=== PATIENT | male | born 1950 | race Caucasian/White ===

== ENCOUNTER 2021-07-15 07:50 | Emergency (ER) | payer OTHER ==
--- OUTSIDE RECORDS SUMMARY | 2021-07-15 07:53 | XMS REPORT | Continuity of Care Document ---
:1950 Author Organization [facility] t Address [address] [place] [address] Dr. Perera [address] [place] [id number] Care Team Providers Name Role Phone LAYTON Attending Clinician Unavailable Problems This patient has no known problems. Allergies, Adverse Reactions, Alerts This patient has no known allergies or adverse reactions. Medications This patient has no known medications. Procedures This patient has no known procedures. Encounters Start End Encounter Admission Attending Care Care Encounter Source Date/Time Date/Time Type Type Clinicians Facility Department ID 2020-03-08 2020-03-08 Outpatient [facility] [id number] [address] 00:00:00 00:00:00 MAKSIM [address] 2020-03-08 2020-03-08 Outpatient [facility] [id number] [address] 00:00:00 00:00:00 MAKSIM [address] Results This patient has no known results.
--- NOTE | 2021-07-15 08:00 | EDPHYS ---
Physician Documentation [facility] Name: Arnulfo Ponce Age: 71 yrs Sex: Male : 1950 Arrival Date: 07/15/2021 Time: 07:52 Bed Waiting Private MD: ED Physician Jim Santos HPI: 07/15 08:02 This 71 yrs old Male presents to ER via Ambulatory with complaints of Head Injury kb Without LOC-Adult. 08:02 The patient or guardian reports a laceration, 1 cm(s), clean. The complaints affect the kb left side of the back of head. Context of injury: The problem was sustained at home, resulted from standing up, and hitting a cabinet. Onset: The symptoms/episode began/occurred just prior to arrival. Associated signs and symptoms: Loss of consciousness: This patient did not experience any loss of consciousness. Severity of symptoms: At their worst the symptoms were mild, in the emergency department the symptoms are unchanged. The patient has not experienced similar symptoms in the past. The patient has not recently seen a physician. Pt reports he opened a cabinet, bent down and when he stood back up hit his head on the corner of the cabinet causing laceration. Denies headache, loc, dizziness. . Historical: - Allergies: 07:57 No Known Allergies; vg1 - Immunization history:: Client reports receiving the 2nd dose of the Covid vaccine. - Social history:: Smoking status: Patient denies any tobacco usage or history of. ROS: 08:00 Constitutional: Negative for fever, chills, and weight loss. kb 08:00 Skin: Positive for laceration(s), of the left side of the back of head. 08:00 All other systems are negative. Exam: 08:00 Constitutional: This is a well developed, well nourished patient who is awake, alert, kb and in no acute distress. ENT: Moist Mucous membranes Respiratory: Respirations even and unlabored. No increased work of breathing. Talking in full sentences MS/ Extremity: Pulses equal, no cyanosis. Neurovascular intact. Full, normal range of motion. Neuro: Awake and alert, GCS 15, oriented to person, place, time, and situation. Moves all extremities. Normal gait. Psych: Awake, alert, with orientation to person, place and time. Behavior, mood, and affect are within normal limits. 08:00 Head/face: Noted is no obvious of injury or deformity except a laceration(s), that is superficial, 1 cm(s). 08:00 Skin: injury, laceration(s), the wound is approximately 1 cm(s), of the left side of the back of head, that can be described as clean, no foreign body, linear, without bleeding. Vital Signs: 07:53 BP 163 / 94; Pulse 72; Resp 16; Temp 98.2; Pulse Ox 100% ; Weight 88.45 kg; Height 5 vg1 ft. 11 in. (180.34 cm); Pain 0/10; 07:53 Body Mass Index 27.20 (88.45 kg, 180.34 cm) vg1 Babatunde Coma Score: 08:01 Eye Response: spontaneous(4). Verbal Response: oriented(5). Motor Response: obeys kb commands(6). Total: 15. 08:02 Eye Response: spontaneous(4). Verbal Response: oriented(5). Motor Response: obeys kb commands(6). Total: 15. Laceration: 08:02 Wound Repair of 1cm ( 0.4in ) subcutaneous laceration to left side of the back of head. kb Linear shaped.. Distal neuro/vascular/tendon intact. Wound prep: Moderate cleansing with betadine by me, Wound irrigation with saline by me. Skin closed with 1 1-0 Prolene using staple gun. Patient tolerated well. MDM: 07:59 Patient medically screened. kb 08:01 Data reviewed: vital signs, nurses notes. Data interpreted: Pulse oximetry: on room air kb is 100 %. Interpretation: normal. Counseling: I had a detailed discussion with the patient and/or guardian regarding: the historical points, exam findings, and any diagnostic results supporting the discharge/admit diagnosis, the need for outpatient follow up, a family practitioner, to return to the emergency department if symptoms worsen or persist or if there are any questions or concerns that arise at home. Administered Medications: No medications were administered Disposition: 08:03 Co-signature as Attending Physician, Jim Santos MD. [email or web address] Disposition Summary: 07/15/21 07:59 Discharge Ordered Location: Home kb Condition: Stable kb Diagnosis - Laceration without foreign body of scalp kb Followup: kb - With: Emergency Department - When: As needed - Reason: Worsening of condition Followup: kb - With: Private Physician - When: 2 - 3 days - Reason: Recheck today's complaints, Continuance of care, Re-evaluation by your physician Discharge Instructions: - Discharge Summary Sheet kb - Laceration Care, Adult, [id number] kb - Head Injury, Adult, [id number] kb Forms: - Medication Reconciliation Form kb - Thank You Letter kb - Antibiotic Education kb - Prescription Opioid Use kb Signatures: Joya Richard FNP-C FNP-Abi Zurita, RN RN vg1 Jim Santos MD MD [email or web address]
--- NOTE | 2021-07-15 08:00 | ER ---
Nurse's Notes [facility] Name: Arnulfo Ponce Age: 71 yrs Sex: Male : 1950 Arrival Date: 07/15/2021 Time: 07:52 Bed Waiting Private MD: Diagnosis: Laceration without foreign body of scalp Presentation: 07/15 07:53 Chief complaint: Patient states: Pt opened up cabinet door and bent down then stood vg1 back up and top left side of head with the corner of the cabinet door. Coronavirus screen: Vaccine status: Patient reports receiving the 2nd dose of the covid vaccine. Client denies travel out of the [place] in the last 14 days. Ebola Screen: Patient negative for fever greater than or equal to 101.5 degrees Fahrenheit, and additional compatible Ebola Virus Disease symptoms. Initial Sepsis Screen: Does the patient meet any 2 criteria? No. Patient's initial sepsis screen is negative. Does the patient have a suspected source of infection? No. Patient's initial sepsis screen is negative. Risk Assessment: Do you want to hurt yourself or someone else? Patient reports no desire to harm self or others. Onset of symptoms was July 15, 2021. 07:53 Method Of Arrival: Ambulatory vg1 07:53 Acuity: CHARMAINE 3 vg1 Triage Assessment: 07:57 General: Appears in no apparent distress. comfortable, Behavior is calm, cooperative. vg1 Pain: Denies pain. EENT: No signs and/or symptoms were reported regarding the EENT system. Neuro: Level of Consciousness is awake, alert, obeys commands, Oriented to person, place, time, situation. Cardiovascular: Patient's skin is warm and dry. Respiratory: Airway is patent Respiratory effort is even, unlabored. GI: No signs and/or symptoms were reported involving the gastrointestinal system. : No signs and/or symptoms were reported regarding the genitourinary system. Derm: Skin is pink, warm \T\ dry. Musculoskeletal: Circulation, motion, and sensation intact. Injury Description: Laceration sustained to left side of the back of head is clean, was sustained less than 30 minutes ago. a small amount of bleeding noted at this time. Historical: - Allergies: 07:57 No Known Allergies; vg1 - Immunization history:: Client reports receiving the 2nd dose of the Covid vaccine. - Social history:: Smoking status: Patient denies any tobacco usage or history of. Screenin:59 Abuse screen: Denies threats or abuse. Nutritional screening: No deficits noted. vg1 Tuberculosis screening: No symptoms or risk factors identified. Fall Risk None identified. Assessment: 07:58 Reassessment: SEE TRIAGE. vg1 Vital Signs: 07:53 BP 163 / 94; Pulse 72; Resp 16; Temp 98.2; Pulse Ox 100% ; Weight 88.45 kg; Height 5 vg1 ft. 11 in. (180.34 cm); Pain 0/10; 07:53 Body Mass Index 27.20 (88.45 kg, 180.34 cm) vg1 Viola Coma Score: 08:01 Eye Response: spontaneous(4). Verbal Response: oriented(5). Motor Response: obeys kb commands(6). Total: 15. 08:02 Eye Response: spontaneous(4). Verbal Response: oriented(5). Motor Response: obeys kb commands(6). Total: 15. ED Course: 07:52 Patient arrived in ED. rg4 07:57 Triage completed. vg1 07:57 Arm band placed on. vg1 07:59 Joya Richard FNP-C is [facility]. kb 07:59 Jim Santos MD is Attending Physician. kb 07:59 Patient has correct armband on for positive identification. vg1 07:59 No provider procedures requiring assistance completed. Patient did not have IV access vg1 during this emergency room visit. Administered Medications: No medications were administered Outcome: 07:59 Discharge ordered by . kb 07:59 Discharged to home ambulatory, with family. vg1 07:59 Condition: good 07:59 Discharge instructions given to patient, Instructed on discharge instructions, follow up and referral plans. Demonstrated understanding of instructions, follow-up care. 08:02 Patient left the ED. vg1 Signatures: Joya Richard FNP-C FNP-Radha Zurita rg4 Abi Gonzalez, RN RN vg1
[2021-07-15 08:18] VITALS: BP 163/94; TEMP 98.2; O2SAT 100
== END 2021-07-15 08:02 | disposition home or self-care (01) ==
LOC: ER 07:50
PROC: 0JQ00ZZ Repair Scalp Subcutaneous Tissue and Fascia, Open Approach (ICD-10-PCS; principal; 2021-07-15)
DX: S01.01XA Laceration without foreign body of scalp, initial encounter (principal); W22.8XXA Striking against or struck by other objects, initial encounter
CPT/HCPCS: 99281